=== PATIENT | male | born 1990 | race Caucasian/White ===

== ENCOUNTER 2019-11-21 10:47 | Emergency (ER) | payer OTHER, SELFPAY ==
[~2019-11-21] VITALS: Ht 180.3 cm; Wt 91.0 kg
[2019-11-21] MEDS ORDERED: ONDANSETRON 4MG ODT PO ONE (11:00)
[2019-11-21 12:20] VITALS: BP 130/86
== END 2019-11-21 12:28 | disposition home or self-care (01) ==
LOC: ER 10:47
DX: U07.1 COVID-19 (principal); R06.00 Dyspnea, unspecified; R11.0 Nausea; R05 Cough; R06.02 Shortness of breath; R09.81 Nasal congestion; R50.9 Fever, unspecified
CPT/HCPCS: 71045; 99284; C9803; Q0162; U0003